=== PATIENT | male | born 1960 | race Caucasian/White ===

== ENCOUNTER 2024-05-08 13:38 | Inpatient (IN) | payer BC, SELFPAY ==
[2024-05-07 15:46] VITALS: BP 117/72
--- NOTE | 2024-05-07 15:55 | ED.GENMED ---
History of Present Illness
General
Chief Complaint: Dizziness
Time Seen by Provider: 05/07/24 15:55
History of Present Illness
History of Present Illness:
HPI: The patient presents with a general unwell feeling over the last several days. He reports a 'weird feeling' in his head, dizziness, and symptoms worsened while in his truck today driving around without air conditioning. He was assisted by
staff here from his truck into the waiting room. He did not pass out. He does not have chest pain. He has had poor p.o. intake today.
EXAM:
GENERAL: The patient appears generally weak and debilitated
HEENT: Somewhat dry oral mucosa
CARDIOVASCULAR: No murmurs, tachycardic heart rate, regular rhythm, No chest wall tenderness
PULMONARY: No respiratory distress, breath sounds are clear and equal
ABDOMEN: Soft with no peritoneal signs, no tenderness
NEUROLOGIC: Good strength all extremities, no coordination deficits, normal finger-nose testing
PSYCHIATRIC: Appropriate mental status, normal insight and judgement
EXTREMITIES: Nontender, no edema, moves all extremities equally
SKIN: Some erythematous macules noted to the face
TIME OF INITIAL ENCOUNTER: 4 PM
NUMBER AND COMPLEXITY OF PROBLEMS ADDRESSED AT THE ENCOUNTER
� Chronic conditions affecting care: Denies any significant past medical history
� Acute Exacerbation and/or Progression of Chronic Illness: This is an acute problem
� Differential Diagnosis includes: Dehydration, heat exhaustion, heat stroke, RASHID, drug/alcohol use
AMOUNT AND/OR COMPLEXITY OF DATA TO BE REVIEWED AND ANALYZED
� I performed an independent evaluation of and my interpretation is:
EKG: Sinus 116, nonspecific ST abnormality
CT: CAT scan shows no acute abnormality
X-rays: Chest x-ray unremarkable
Laboratory Studies: White count 6.7, hemoglobin 12.7, sodium potassium normal, bicarb slightly low at 20, total bili at 1.7, AST 131, CK minimally elevated to 22, ABG pH 7.49, pCO2 24, pO2 133�this was obtained on room air
Other:
� Review of other/old records: No old records available for review in [facility]
� Clinical information was obtained by an independent historian:
� Prescriptions/Medications Considered but not given:
� Further testing considered but not performed:
RISK OF COMPLICATIONS AND/OR MORBIDITY OR MORTALITY OF PATIENT MANAGEMENT
� Social determinants of health affecting care: Lives at home with air-conditioning, car does not have air conditioning
� Discussion with other providers: Hospitalist, Dr. Zee, at 7:21 PM for admission.
� Escalation of care including admission/observation vs risk of discharge considered: The patient was given IV fluid. CT imaging of the head obtained because he has been having ongoing head discomfort along with worsening
dizziness and not improving over the last several days. On reassessment at 4:30 PM, the patient has a room air sat as low as 79% with excellent waveform. ABG was obtained which was unremarkable. This did start to come up with neck extension and
having him take deep breaths. He was placed on supplemental nasal cannula oxygen as well. Will add chest x-ray. Alcohol level elevated 197 and this could be a contributing factor to his symptoms. The patient remains to be tachycardic and he
tells me he has not been drinking. I suspect a component of alcohol withdrawal as well as he does have a CIWA score of 14. Patient appears somewhat pathic on reexamination at 7:10 PM and does not recall how he got here and does not give a
consistent history
Phy Exam
Physical Exam
Physical Exam:
See HPI
Course
Orders/Labs/Results
Orders:
Orders
05/07/24 15:49
Electrocardiogram (*1) Urgent
Reason for Study: Vertigo / Dizzy
EKG- Treatment ONCE
05/07/24 15:56
0.9% Sodium Chloride 1000 ml [Nss] 1,000 ml IV BOLUS
05/07/24 16:02
CT Head W/o Iv Contrast Urgent
Comment:
Reason For Exam: ZHONG dizzy near syncope; worsening
05/07/24 16:05
Alcohol Urgent
Complete Blood Count/With Diff Urgent
Comprehensive Metabolic Panel Urgent
NT-proBNP Urgent
Comment: BNP ADDED ON BY FLOOR 4:40PM 05-07-24
Total CK [Creatine Phosphokinase] Urgent
05/07/24 16:37
Add On- LAB Routine
Tests Added?: bnp
05/07/24 16:38
CR Chest Portable - 1 View Urgent
Comment:
Reason For Exam: hypoxia
Reason Study Needs to be Portable: Patient Unstable
05/07/24 16:39
Add On- LAB Urgent
Tests Added?: alcohol
05/07/24 17:22
ABG [Arterial Blood Gas] Urgent
%Oxygen/Room Air: 2lpm
05/07/24 18:21
Drug Screen, Urine [Urine Drug Abuse Screen] Urgent
Date Specimen was Collected: 05/07/24
Time Specimen was Collected: 16:34
Abnormal Lab Results
05/07/24 05/07/24
16:05 17:22
RBC 3.78 L 10^6/uL
(4.70-6.10)
Hgb 12.7 L g/dL
(13.0-18.0)
Hct 34.8 L %
(39.0-52.0)
MCH 33.6 H pg
(27.0-31.0)
MPV 10.5 H fL
(7.4-10.4)
Basophils % 2.2 H %
(0-2)
pH 7.49 H
(7.35-7.45)
pCO2 24 L mmHg
(35-48)
pO2 133 H mmHg
(83-108)
HCO3 18.3 L mmol/L
(21-28)
Carbon Dioxide 20 L mmol/L
(22-30)
Total Bilirubin 1.7 H mg/dl
(0.2-1.3)
AST 131 H U/L
(17-59)
Alkaline Phosphatase 137 H U/L
(38-126)
Creatine Kinase 222 H U/L
(55-170)
Total Protein 8.7 H g/dl
(6.3-8.2)
05/07/24 16:05
05/07/24 16:05
Vital Signs
Initial and Last Documented VS:
Initial Vital Signs
Temp Pulse Resp BP Pulse Ox
97.8 F 119 20 117/72 98
05/07/24 15:46 05/07/24 15:46 05/07/24 15:46 05/07/24 15:46 05/07/24 15:46
Last Documented Vital Signs
Temp Pulse Resp BP Pulse Ox
97.8 F 87 17 142/98 98
05/07/24 15:46 05/07/24 18:30 05/07/24 18:15 05/07/24 17:00 05/07/24 18:30
*Critical Care Note
Total Time (30-74mins, 75-104mins- exclusive of procedures): Not Applicable
ED Attending Note
-
Portions of this chart may have been created with voice recognition software.� Occasional wrong word or��sound alike� substitutions may have occurred due to the inherent limitations of voice recognition software.
Discharge Plan
Departure
Patient Disposition: Admit
Date of Disposition: 05/07/24
Time of Disposition: 19:21
Presentation/result/management discussed w/ accepting MD/DO: Hospitalist
Discharge Problem:
Alcohol withdrawal
Referrals:
Kishore Gusman DO [Family Provider] -
Interventions
Interventions:
ED- Neurological Assessment Last Done: 05/07/24 16:07
ED- Cardiac Assessment Last Done: 05/07/24 17:21
ED Swallowing Screen Last Done: 05/07/24 17:21
Discharge Date and Time
Print Language: BAHAMIAN
[2024-05-07 15:57] VITALS: BP 126/82
[2024-05-07 16:07] VITALS: BMI 25.3
[2024-05-07] MEDS: NSS 1000 IV ×2 (16:07→22:13)
[2024-05-07 16:27] LABS: Glucose - Point of Care 96 mg/dl (70-99)
[2024-05-07 16:30] LABS: % Basophils 2.2 % (0-2); % Eosinophils 0.7 % (0-6); % Immature Granulocytes 0.1 % (0-0.5); % Monocytes 5.4 % (1.7-9.3); % Neutrophils 60.6 % (42.2-75.2); Absolute Basophils 0.2 10^3/uL (0-0.2); Absolute Eosinophils 0.1 10^3/uL (0-0.7); Absolute Lymphocytes 2.1 10^3/uL (1.2-3.4); Absolute Monocytes 0.4 10^3/uL (0.1-0.6); Absolute Neutrophils 4.1 10^3/uL (1.4-6.5); Hematocrit 34.8 % (39.0-52.0); Hemoglobin 12.7 g/dL (13.0-18.0); Mean Corp Hgb Conc. 36.5 g/dL (33.0-37.0); Mean Corpuscular Hgb 33.6 pg (27.0-31.0); Mean Corpuscular Volume 92.1 fL (80.0-94.0); Nucleated Red Blood Cells % 0 % (-); Red Blood Cell Count 3.78 10^6/uL (4.70-6.10); Red Cell Dist. Width 13.9 % (11.5-14.5); White Blood Cell Count 6.7 10^3/uL (4.8-10.8)
[2024-05-07 16:34] LABS: ALT (SGPT) 34 U/L (0-50); AST (SGOT) 131 U/L (17-59); Albumin 4.6 g/dl (3.5-5.0); Alkaline Phosphatase 137 U/L (38-126); Blood Urea Nitrogen 10 mg/dl (9-20); Calcium 9.2 mg/dl (8.4-10.2); Carbon Dioxide 20 mmol/L (22-30); Chloride 102 mmol/L (98-107); Creatine Phosphokinase 222 U/L (55-170); Estimated Creatinine Clearance 92 ml/min; Glucose 91 mg/dl (70-99); Potassium 3.7 mmol/L (3.5-5.1); Sodium 140 mmol/L (135-145); Total Bilirubin 1.7 mg/dl (0.2-1.3); Total Protein 8.7 g/dl (6.3-8.2); eGFR > 60.00
[2024-05-07 16:41] LABS: Mean Platelet Volume 10.5 fL (7.4-10.4); Platelet Count 130 10^3/uL (130-400)
[2024-05-07 17:00] VITALS: BP 142/98
[2024-05-07 17:06] LABS: Alcohol 197 mg/dl
[2024-05-07 17:18] LABS: NT-proBNP 34.6 pg/ml
[2024-05-07 17:36] LABS: B.E. -3.3 mmol/L; HCO3 18.3 mmol/L (21-28); O2 Saturation % 96.9 % (94-98); PCO2 24 mmHg (35-48); PO2 133 mmHg (83-108); pH 7.49 (7.35-7.45)
[2024-05-07 18:51] LABS: Amphetamines Negative (Negative); Barbiturates Negative (Negative); Benzodiazepines Negative (Negative); Buprenorphine Negative (Negative); Cocaine Negative (Negative); Marijuana Negative (Negative); Methadone Negative (Negative); Methamphetamines Negative (Negative); Opiates Negative (Negative); Phencyclidine Negative (Negative); Tricyclic Antidepressants Negative (Negative)
[2024-05-07] MEDS: NSS 500 IV (19:36)
--- NOTE | 2024-05-07 19:40 | HPS.HSE ---
Family Physician
-
Family Physician: Kishore Gusman
Chief Complaint
-
weakness
History of Present Illness
63-year-old mal no past medical history presenting with feeling generally unwell over the past several days. He complains of severe weakness, dizziness, feeling like he is going to pass out, headache, blurry vision, chest pressure, shortness of
breath and nausea and decreased p.o. intake, abdominal pain over the past day. He was driving around his truck today without air conditioning. He denies diarrhea. He denies fevers or chills
He drinks half a bottle of whiskey per day which he last ran yesterday. He denies smoking or any other drugs.
Medical History
Past Medical History
Past Medical History: Reports None
Past Surgical History: Reports Other (Appendectomy, craniotomy when he was a child)
Social History
Tobacco: Non-smoker
Alcohol: Daily
Drug: None
Family History
Family History: Not pertinent
Allergies / Home Medications
Allergies reflects when Allergies were last updated in [employer].
Home Medications with original date entered in [employer]
Allergy/Medication List:
Allergies
Allergy/AdvReac Type Severity Reaction Status Date / Time
No Known Allergies Allergy Verified 05/07/24 15:49
Home Medications
No Meds [No Current Medications] 05/07/24
Review of Systems
-
History Source: Patient
A 12 point ROS was completed and negative except as noted: Yes
Constitutional: Reports See HPI
EENT: Reports No Symptoms
Respiratory: Reports See HPI
Cardiac: Reports See HPI
Abdomen/GI: Reports See HPI
: Reports No Symptoms
Musculoskeletal: Reports No Symptoms
Skin: Reports No Symptoms
Neurological: Reports No Symptoms
Endocrine: Reports No Symptoms
Hematologic/Lymphatic: Reports No Symptoms
Psych: Reports No Symptoms
Physical Exam
Vital Signs
Vital Signs
Temp Pulse Resp BP Pulse Ox
97.8 F 87 17 142/98 98
05/07/24 15:46 05/07/24 18:30 05/07/24 18:15 05/07/24 17:00 05/07/24 18:30
Physical Exam
General: Well Developed, Well Nourished and No Apparent Distress
HEENT: NormoCephalic, Moist mucous membranes and Atraumatic
Respiratory: Clear
Cardiac: S1/S2 and Regular Rhythm; No Murmur or Rub
GI: Soft, Non Tender, Non Distended and Normal Bowel Sounds; No Organomegaly
Rectal: Deferred by Provider
Musculoskeletal: No Clubbing, No Cyanosis and No Edema
Skin: No Rash
Neuro: Nonfocal/grossly intact
Laboratory Results
-
05/07/24 16:05
05/07/24 16:05
Laboratory Results
pH 7.49 (7.35-7.45) H 05/07/24 17:22
pCO2 24 mmHg (35-48) L 05/07/24 17:22
pO2 133 mmHg (83-108) H 05/07/24 17:22
HCO3 18.3 mmol/L (21-28) L 05/07/24 17:22
Total Bilirubin 1.7 mg/dl (0.2-1.3) H 05/07/24 16:05
AST 131 U/L (17-59) H 05/07/24 16:05
ALT 34 U/L (0-50) 05/07/24 16:05
Alkaline Phosphatase 137 U/L (38-126) H 05/07/24 16:05
Data Reviewed
-
Lab Data: Labs Reviewed by me
Old Records: Reviewed
Impression/Plan
-
IMPRESSION:
PLAN:
# Likely alcohol intoxication/withdrawal
# Daily alcohol use
-Alcohol level 197
-UDS negative
-ABG showing uncompensated respiratory alkalosis
-Chest x-ray unremarkable
-CT head negative
-IV fluids
-Thiamine and folate
-Alcohol withdrawal protocol
-Protonix for potential gastritis
-Zofran
# Chest pressure
-EKG shows sinus tachycardia
-Check troponin
# Mild transaminitis likely secondary to alcohol
-Continue to monitor
Full code
DVT prophylaxis�heparin
Regular diet
[2024-05-07 19:48] VITALS: BP 131/66
[2024-05-07] MEDS: PROTONIX IV 40 MG IV (19:54)
[2024-05-07 20:00] VITALS: BP 138/77
[2024-05-07 20:22] LABS: Magnesium 1.3 mg/dl (1.6-2.3)
[2024-05-07 20:24] LABS: Troponin I < 0.012 ng/ml
--- NOTE | 2024-05-07 21:00 | PTCARENOTE ---
Pt transferred from ED. Pt slid over into bed. Pt AAOX2, forgetful, nausea, anxious. Pt reports Roberto protocol initiated.
[2024-05-07 21:30] VITALS: BMI 24.9
[2024-05-07 21:37] VITALS: BP 134/81
--- NOTE | 2024-05-07 22:00 | PTCARENOTE ---
Pt transferred from ED. Pt rolled over into bed with assistance. Pt AAOX2, able to make needs known, VSS. Pt reports he drinks frequently, MSAS protocol initiated. Pt forgetful, anxious, nauseous, and experiencing tremors. Pt oriented to room, bed
alarm applied, call parks within reach. Will continue with current plan.
[2024-05-07] MEDS: ATIVAN 1 MG PO (22:10)
[2024-05-07] MEDS: THIAMINE INJECTION 200 MG IV (22:11)
[2024-05-07] MEDS: HEPARIN 5000 UNITS SC (22:11)
[2024-05-07] MEDS: ZOFRAN 4 MG IV (22:24)
[2024-05-08] VITALS (8 sets, daily range): BP systolic 105–156; BP diastolic 68–96; PULSE 83–88; O2SAT 96–98; BMI 25.0
--- NOTE | 2024-05-08 03:19 | DOWNTIME ---
There was a [employer] Client Duty Officer Downtime on 05/08/2024 from 0100 to 05/08/2024 at 0255. Downtime documentation of patient's care, including medication administrations, has been reconciled in the electronic record per guidelines. Refer to the
patient's paper chart under the miscellaneous tab to see printed paper medication records and downtime forms.
[2024-05-08] MEDS: ZOFRAN 4 MG IV ×2 (05:02→11:28)
[2024-05-08] MEDS: NSS 1000 IV ×2 (06:12→20:06)
[2024-05-08 07:53] LABS: ALT (SGPT) 35 U/L (0-50); AST (SGOT) 121 U/L (17-59); Albumin 4.3 g/dl (3.5-5.0); Alkaline Phosphatase 128 U/L (38-126); Blood Urea Nitrogen 9 mg/dl (9-20); Calcium 8.4 mg/dl (8.4-10.2); Carbon Dioxide 24 mmol/L (22-30); Chloride 98 mmol/L (98-107); Estimated Creatinine Clearance 119 ml/min; Glucose 81 mg/dl (70-99); Potassium 4.1 mmol/L (3.5-5.1); Sodium 135 mmol/L (135-145); Total Bilirubin 2.4 mg/dl (0.2-1.3); Total Protein 8.3 g/dl (6.3-8.2); eGFR > 60.00
[2024-05-08 08:38] LABS: Hematocrit 35.3 % (39.0-52.0); Hemoglobin 12.3 g/dL (13.0-18.0); Mean Corp Hgb Conc. 34.8 g/dL (33.0-37.0); Mean Corpuscular Hgb 32.3 pg (27.0-31.0); Mean Corpuscular Volume 92.7 fL (80.0-94.0); Red Blood Cell Count 3.81 10^6/uL (4.70-6.10); Red Cell Dist. Width 13.9 % (11.5-14.5); White Blood Cell Count 6.1 10^3/uL (4.8-10.8)
[2024-05-08 08:56] LABS: Magnesium 1.2 mg/dl (1.6-2.3); Phosphorus 2.6 mg/dl (2.5-4.5)
[2024-05-08] MEDS: HEPARIN 5000 UNITS SC ×2 (09:02→19:55)
[2024-05-08] MEDS: FOLVITE 1 MG PO (09:02)
[2024-05-08] MEDS: MAGNESIUM OXIDE 500 MG PO (09:02)
[2024-05-08] MEDS: THIAMINE INJECTION 200 MG IV ×2 (09:03→20:02)
--- NOTE | 2024-05-08 09:48 | W.PN.HOSP.TC ---
Today's Communication/Plan
-
see outlined plan
Assessment / Plan
Assessment / Plan
Assessment:
Acute ETOH intoxication with now clinical evidence of Withdrawal
- start phenobarbital protocol
- continue MSAS protocol with folate, MV, thiamine
Chronic alcoholism
- reports 1/2 bottle every other day
- encourage cessation
- BCARES consultation
- monitor nutrition; nutrition consult
Hypomagnesemia
- replete via IV
Chest pain
Epigastric pain
- likely related to ETOH intake, gastritis/esophagitis
- check 1 additional trop; monitor tele
- IV PPI
- clears; continue IVF
- anti-emetics
Subjective dyspnea
- wean O2, CXR clear
- IS
DVT ppx: SC heparin
Code: Full
Anticipated Discharge: 24 - 48 hours
Subjective/Interval History
-
Date of Service: May 08, 2024
reports epigastric discomfort, mild chest discomfort
no SOB or fever/chills
no other complaints
admits to drinking at least 1/2 bottle every other day and reports prior hx of withdrawal
Objective Data
-
Labs:
Laboratory Results
05/08/24
07:10
WBC 6.1
Hgb 12.3 L
Hct 35.3 L
Plt Count Pending
Sodium 135
Potassium 4.1
Chloride 98
Carbon Dioxide 24
BUN 9
Creatinine 0.7
Glucose 81
Calcium 8.4
Total Bilirubin 2.4 H
AST 121 H
ALT 35
Alkaline Phosphatase 128 H
Vital Signs:
Vital Signs
Temp Pulse Resp BP Pulse Ox
97.7 F 107 24 137/93 99
05/08/24 07:15 05/08/24 07:15 05/08/24 07:15 05/08/24 07:15 05/08/24 07:15
I&O
05/07/24 05/08/24 05/09/24
06:59 06:59 06:59
Intake Total 1280 / 1280
Output Total 900 / 900
Balance 380 / 380
Physical Exam
-
General: Appears in Distress and Conversant
HEENT: Normocephalic and Atraumatic
Respiratory: Clear to Auscultation; Negative Wheezes or Rales
Cardiac: Regular Rhythm and S1/S2
GI: Normal Bowel Sounds and Tender (epigastric)
Genito-urinary: No Costovertebral Tender
Musculoskeletal: No Edema
Neuro: AO x 3 and Tremors
Psych: Calm
Data Reviewed
-
Total Time Spent with Patient (in minutes): 46
Labs: Labs Reviewed by me
[2024-05-08 10:57] LABS: % Basophils 1.3 % (0-2); % Eosinophils 1.6 % (0-6); % Immature Granulocytes 0.3 % (0-0.5); % Lymphocytes 26.1 % (20.5-51.1); % Monocytes 5.9 % (1.7-9.3); % Neutrophils 64.8 % (42.2-75.2); Absolute Basophils 0.1 10^3/uL (0-0.2); Absolute Eosinophils 0.1 10^3/uL (0-0.7); Absolute Lymphocytes 1.6 10^3/uL (1.2-3.4); Absolute Monocytes 0.4 10^3/uL (0.1-0.6); Mean Platelet Volume 10.8 fL (7.4-10.4); Nucleated Red Blood Cells % 0 % (-); Platelet Count 79 10^3/uL (130-400)
[2024-05-08 11:05] LABS: Troponin I < 0.012 ng/ml
[2024-05-08] MEDS: PHENOBARBITAL 97.5 MG IV ×3 (11:26→22:22)
[2024-05-08] MEDS: PROTONIX IV 40 MG IV (11:29)
[2024-05-08] MEDS: NSS (PRESERVATIVE FREE) 10 ML IV (11:30)
[2024-05-08] MEDS: MAGNESIUM SULFATE 100 IV (11:31)
--- NOTE | 2024-05-08 12:18 | CM ---
Addendum entered by Melinda Valdez 05/08/24 12:48:
Salvador from [facility] seen patient today.
Resources given for outpatient. Patient agreeable to virtual.
Original Note:
Initial assessment by dependency case manager.
Observation form signed/dated & placed in chart.
Dx: Alcohol intoxication/withdrawal
Patient lives in a 2nd floor apartment with his dog and has approximately 10 steps to apartment. Does have air conditioning.
PLOF: Independent and drives - No DME
Salvador from [facility] to see the patient regarding resources.
No needs identified at this time.
PCP: Dr. Kishore Gusman
Pharmacy: [facility]
PLAN: Discharge to home. No needs at this time.
--- NOTE | 2024-05-08 12:45 | PTCARENOTE ---
Assumed care of pt from previous nurse. MSAS is 4, pt provided zofran for nausea. Pt is on tele running nsr. Pt call parks is within reach, pt rings yu. will cont to monitor.
[2024-05-08] MEDS: ATIVAN 1 MG PO (17:41)
[2024-05-09 03:27] VITALS: BP 113/68
[2024-05-09] MEDS: NSS 1000 IV (05:32)
[2024-05-09 06:00] VITALS: BMI 24.9
[2024-05-09 07:15] VITALS: BP 134/85
[2024-05-09] MEDS: NSS (PRESERVATIVE FREE) 10 ML IV (07:32)
[2024-05-09] MEDS: PROTONIX IV 40 MG IV (07:33)
[2024-05-09] MEDS: PHENOBARBITAL 97.5 MG IV ×3 (07:33→21:29)
[2024-05-09] MEDS: HEPARIN 5000 UNITS SC (07:34)
[2024-05-09] MEDS: THIAMINE INJECTION 200 MG IV ×2 (07:34→19:54)
[2024-05-09] MEDS: FOLVITE 1 MG PO (07:34)
[2024-05-09 08:53] LABS: Hematocrit 32.1 % (39.0-52.0); Hemoglobin 11.6 g/dL (13.0-18.0); Mean Corp Hgb Conc. 36.1 g/dL (33.0-37.0); Mean Corpuscular Hgb 33.3 pg (27.0-31.0); Mean Corpuscular Volume 92.2 fL (80.0-94.0); Mean Platelet Volume 10.8 fL (7.4-10.4); Platelet Count 62 10^3/uL (130-400); Red Blood Cell Count 3.48 10^6/uL (4.70-6.10); Red Cell Dist. Width 13.8 % (11.5-14.5); White Blood Cell Count 4.8 10^3/uL (4.8-10.8)
[2024-05-09 09:11] LABS: ALT (SGPT) 30 U/L (0-50); AST (SGOT) 96 U/L (17-59); Albumin 3.8 g/dl (3.5-5.0); Alkaline Phosphatase 122 U/L (38-126); Blood Urea Nitrogen 10 mg/dl (9-20); Calcium 8.5 mg/dl (8.4-10.2); Carbon Dioxide 27 mmol/L (22-30); Chloride 98 mmol/L (98-107); Estimated Creatinine Clearance 119 ml/min; Glucose 108 mg/dl (70-99); Magnesium 1.8 mg/dl (1.6-2.3); Phosphorus 1.9 mg/dl (2.5-4.5); Potassium 3.4 mmol/L (3.5-5.1); Sodium 135 mmol/L (135-145); Total Bilirubin 2.1 mg/dl (0.2-1.3); Total Protein 7.7 g/dl (6.3-8.2); eGFR > 60.00
--- NOTE | 2024-05-09 10:18 | W.PN.HOSP.TC ---
Today's Communication/Plan
-
continue ETOH w/d protocol
replete K and Phos
repeat AM labs
reg diet
Assessment / Plan
Assessment / Plan
Assessment:
Acute ETOH intoxication with now clinical evidence of Withdrawal
- continue phenobarbital protocol
- continue MSAS protocol with folate, MV, thiamine
Chronic alcoholism
- reports 1/2 bottle every other day
- encourage cessation
- BCARES consultation
- monitor nutrition; nutrition consult
Hypomagnesemia
- replete via IV
Hypokalemia
- replete orally
Hypophosphatemia
- replete orally
Chest pain
Epigastric pain
- likely related to ETOH intake, gastritis/esophagitis
- 2 negative trops
- continue IV PPI
- regular diet, cap IVF
- anti-emetics
Subjective dyspnea
- wean O2, CXR clear
- IS
Thrombocytopenia in setting of acute alcohol use
- monitor
DVT ppx: SCDs (stop Heparin with thrombocytopenia)
Code: Full
Anticipated Discharge: > 48 hours
Subjective/Interval History
-
Date of Service: May 09, 2024
withdrawal improving
no new complaints
Objective Data
-
Labs:
Laboratory Results
05/09/24
08:14
WBC 4.8
Hgb 11.6 L
Hct 32.1 L
Plt Count 62 L D
Sodium 135
Potassium 3.4 L
Chloride 98
Carbon Dioxide 27
BUN 10
Creatinine 0.7
Glucose 108 H
Calcium 8.5
Total Bilirubin 2.1 H
AST 96 H
ALT 30
Alkaline Phosphatase 122
Vital Signs:
Vital Signs
Temp Pulse Resp BP Pulse Ox
97.6 F 100 18 134/85 98
05/09/24 07:15 05/09/24 07:15 05/09/24 07:15 05/09/24 07:15 05/09/24 07:15
I&O
05/08/24 05/09/24 05/10/24
06:59 06:59 06:59
Intake Total 1280 / 1280 2640 / 2640
Output Total 900 / 900 3050 / 3050
Balance 380 / 380 -410 / -410
Physical Exam
-
General: No Apparent Distress
HEENT: Normocephalic and Atraumatic
Respiratory: Negative Wheezes
Cardiac: Regular Rhythm
GI: Soft
Genito-urinary: No Costovertebral Tender
Neuro: AO x 3
Psych: Calm
Data Reviewed
-
Total Time Spent with Patient (in minutes): 44
Labs: Labs Reviewed by me
[2024-05-09] MEDS: KCL 40 MEQ PO (10:56)
[2024-05-09 11:22] VITALS: BP 99/59
--- NOTE | 2024-05-09 12:47 | CM ---
Patient in bed resting comfortably.
States met with Salvador from [facility] yesterday and will see again.
Plan: Patient to discharge home when stable. No needs anticipated at this time.
[2024-05-09] MEDS: NEUTRA-PHOS POWDER PACKET 250 MG PO ×2 (14:15→17:04)
[2024-05-09 15:02] VITALS: BP 115/76
[2024-05-09 19:25] VITALS: BP 118/74
[2024-05-09 23:10] VITALS: BP 124/71
[2024-05-10] VITALS (7 sets, daily range): BP systolic 95–155; BP diastolic 60–96; PULSE 104–119; BMI 24.9
[2024-05-10] MEDS: LUMINAL 64.8 MG PO ×3 (08:30→21:00)
[2024-05-10] MEDS: FOLVITE 1 MG PO (08:31)
[2024-05-10] MEDS: THIAMINE INJECTION 200 MG IV (09:07)
[2024-05-10] MEDS: NSS (PRESERVATIVE FREE) 10 ML IV (09:08)
[2024-05-10] MEDS: PROTONIX IV 40 MG IV (09:08)
[2024-05-10 09:15] LABS: Hematocrit 34.3 % (39.0-52.0); Hemoglobin 12.1 g/dL (13.0-18.0); Mean Corp Hgb Conc. 35.3 g/dL (33.0-37.0); Mean Corpuscular Hgb 33.4 pg (27.0-31.0); Mean Corpuscular Volume 94.8 fL (80.0-94.0); Mean Platelet Volume 11.5 fL (7.4-10.4); Platelet Count 61 10^3/uL (130-400); Red Blood Cell Count 3.62 10^6/uL (4.70-6.10); White Blood Cell Count 5.8 10^3/uL (4.8-10.8)
[2024-05-10 09:45] LABS: ALT (SGPT) 33 U/L (0-50); AST (SGOT) 105 U/L (17-59); Albumin 3.9 g/dl (3.5-5.0); Alkaline Phosphatase 146 U/L (38-126); Blood Urea Nitrogen 11 mg/dl (9-20); Carbon Dioxide 29 mmol/L (22-30); Chloride 101 mmol/L (98-107); Estimated Creatinine Clearance 104 ml/min; Glucose 98 mg/dl (70-99); Magnesium 1.6 mg/dl (1.6-2.3); Potassium 3.9 mmol/L (3.5-5.1); Sodium 136 mmol/L (135-145); Total Bilirubin 1.6 mg/dl (0.2-1.3); Total Protein 7.7 g/dl (6.3-8.2); eGFR > 60.00
--- NOTE | 2024-05-10 11:07 | W.PN.HOSP.TC ---
Today's Communication/Plan
-
sodium/phos
monitor platelets
continue Phenobarb protocol
Assessment / Plan
Assessment / Plan
Assessment:
Acute ETOH intoxication with now clinical evidence of Withdrawal
- continue phenobarbital protocol
- continue MSAS protocol with folate, MV, thiamine
Chronic alcoholism
- reports 1/2 bottle every other day
- encourage cessation
- BCARES consultation
- monitor nutrition; nutrition consult
Hypomagnesemia
- levels stable after repletion
Hypokalemia
- replete orally prn
Hypophosphatemia
- replete orally with Na/Phos packets
Chest pain
Epigastric pain
- likely related to ETOH intake, gastritis/esophagitis
- 2 negative trops
- continue PPI
- regular diet
- anti-emetics
Subjective dyspnea
- wean O2, CXR clear
- IS
Thrombocytopenia in setting of acute alcohol use
- monitor
DVT ppx: SCDs (stop Heparin with thrombocytopenia)
Code: Full
Anticipated Discharge: Within 24 hours
Subjective/Interval History
-
Date of Service: May 10, 2024
feels better no complaints
Objective Data
-
Labs:
Laboratory Results
05/10/24
07:35
WBC 5.8
Hgb 12.1 L
Hct 34.3 L
Plt Count 61 L
Sodium 136
Potassium 3.9
Chloride 101
Carbon Dioxide 29
BUN 11
Creatinine 0.8
Glucose 98
Calcium 9.0
Total Bilirubin 1.6 H
AST 105 H
ALT 33
Alkaline Phosphatase 146 H
Vital Signs:
Vital Signs
Temp Pulse Resp BP Pulse Ox
98.5 F 101 19 121/65 100
05/10/24 11:00 05/10/24 11:00 05/10/24 11:00 05/10/24 11:00 05/10/24 11:00
I&O
05/09/24 05/10/24 05/11/24
06:59 06:59 06:59
Intake Total 2640 / 2640 1779
Output Total 3050 / 3050
Balance -410 / -410 1779
Physical Exam
-
General: No Apparent Distress
HEENT: Normocephalic and Atraumatic
Respiratory: Negative Wheezes
Cardiac: Regular Rhythm and S1/S2
GI: Soft and Nontender
Genito-urinary: No Costovertebral Tender
Musculoskeletal: No Edema
Neuro: AO x 3
Psych: Calm
Data Reviewed
-
Total Time Spent with Patient (in minutes): 42
Labs: Labs Reviewed by me
--- NOTE | 2024-05-10 11:59 | CM ---
Patient seen bedside.
PT recommending home with HC,
Referral to [facility] and accepted.
Per PT notes may need an ambulation device, will see if he needs any with next session.
(may need script for RW)
IMM completed.
Plan: home with [facility]N
[facility]
Fax# [phone]
[2024-05-10] MEDS: NEUTRA-PHOS POWDER PACKET 250 MG PO ×3 (13:18→21:00)
[2024-05-10] MEDS: VITAMIN B1 100 MG PO (20:48)
[2024-05-11 03:00] VITALS: BP 117/67
[2024-05-11 08:00] VITALS: BP 151/86
[2024-05-11] MEDS: LUMINAL 64.8 MG PO (08:17)
[2024-05-11] MEDS: NEUTRA-PHOS POWDER PACKET 250 MG PO (08:17)
[2024-05-11] MEDS: VITAMIN B1 100 MG PO (08:18)
[2024-05-11] MEDS: PROTONIX 40 MG PO (08:18)
[2024-05-11] MEDS: FOLVITE 1 MG PO (08:18)
--- NOTE | 2024-05-11 08:59 | W.PN.HOSP.TC ---
Today's Communication/Plan
-
dc to home today
Assessment / Plan
Assessment / Plan
Assessment:
Acute ETOH intoxication with now clinical evidence of Withdrawal
- completed majority of phenobarbital protocol with improvement; will stop it now
- continue MSAS protocol with folate, MV, thiamine, mag oxide
Chronic alcoholism
- reports 1/2 bottle every other day
- encourage cessation
- BCARES consultation
- monitor nutrition; nutrition consult
Hypomagnesemia
- dc on mag oxide daily
Hypokalemia
- replete orally prn
Hypophosphatemia
- adequate replaced with Na/Phos packets
Chest pain
Epigastric pain
- likely related to ETOH intake, gastritis/esophagitis
- 2 negative trops
- continue PPI
- regular diet
- anti-emetics
Subjective dyspnea
- wean O2, CXR clear
- IS
Thrombocytopenia in setting of acute alcohol use
- improving, no active bleeding
DVT ppx: SCDs
Code: Full
More than 30 minutes spent in discharge including
Final examination of the patient
Summarizing hospital stay
Instructions for continuing care to all relevant caregivers
Preparation of discharge records, prescriptions, and referral forms
Total time spent (in minutes):41
Anticipated Discharge: Today
Subjective/Interval History
-
Date of Service: May 11, 2024
no new complaints
Objective Data
-
Labs:
Laboratory Results
05/11/24
07:49
WBC Pending
Hgb Pending
Hct Pending
Plt Count Pending
Sodium Pending
Potassium Pending
Chloride Pending
Carbon Dioxide Pending
BUN Pending
Creatinine Pending
Glucose Pending
Calcium Pending
Total Bilirubin Pending
AST Pending
ALT Pending
Alkaline Phosphatase Pending
Vital Signs:
Vital Signs
Temp Pulse Resp BP Pulse Ox
97.6 F 68 20 151/86 94
05/11/24 08:00 05/11/24 08:00 05/11/24 08:00 05/11/24 08:00 05/11/24 08:00
I&O
05/10/24 05/11/24 05/12/24
06:59 06:59 06:59
Intake Total 1780 / 1780 600 / 600
Balance 1780 / 1780 600 / 600
Physical Exam
-
General: No Apparent Distress
HEENT: Normocephalic and Atraumatic
Respiratory: Negative Wheezes
Cardiac: Regular Rhythm and S1/S2
GI: Soft
Genito-urinary: No Costovertebral Tender
Musculoskeletal: No Edema
Neuro: AO x 3
Hematologic / Lymphatic: No Lymphadenopathy
Psych: Calm
Data Reviewed
-
Total Time Spent with Patient (in minutes): 41
Labs: Labs Reviewed by me
[2024-05-11 09:27] LABS: Hematocrit 33.5 % (39.0-52.0); Mean Corp Hgb Conc. 35.8 g/dL (33.0-37.0); Mean Corpuscular Hgb 33.3 pg (27.0-31.0); Mean Corpuscular Volume 93.1 fL (80.0-94.0); Mean Platelet Volume 12.5 fL (7.4-10.4); Platelet Count 74 10^3/uL (130-400); Red Cell Dist. Width 14.5 % (11.5-14.5); White Blood Cell Count 7.7 10^3/uL (4.8-10.8)
[2024-05-11 09:54] LABS: ALT (SGPT) 36 U/L (0-50); AST (SGOT) 100 U/L (17-59); Alkaline Phosphatase 144 U/L (38-126); Blood Urea Nitrogen 14 mg/dl (9-20); Calcium 9.5 mg/dl (8.4-10.2); Carbon Dioxide 26 mmol/L (22-30); Chloride 100 mmol/L (98-107); Estimated Creatinine Clearance 104 ml/min; Glucose 88 mg/dl (70-99); Magnesium 1.5 mg/dl (1.6-2.3); Phosphorus 3.6 mg/dl (2.5-4.5); Potassium 4.1 mmol/L (3.5-5.1); Sodium 136 mmol/L (135-145); Total Bilirubin 1.4 mg/dl (0.2-1.3); Total Protein 8.1 g/dl (6.3-8.2); eGFR > 60.00
--- NOTE | 2024-05-11 10:24 | W.DS.TRANS ---
DC Summary - Clinical Cytogeneticist Scientist
-
Discharge Instructions:
Discharge Diagnosis/Procedures ETOH intoxication with withdrawal
Diet Regular
Activity As tolerated
Bathing Restrictions None
Other Services [facility]
Instructions:
Stand-Alone Forms:
Changes to Home Medications: No
Discharge Medications:
DC Medications w/original date [facility] in [employer] [facility] [facility]
folic acid 1 mg tablet 1 mg PO DAILY #100 tabs 05/10/24
pantoprazole 40 mg tablet,delayed release 40 mg PO DAILY #30 tabs 05/10/24
thiamine HCl (vitamin B1) 100 mg tablet 100 mg PO BID #100 tabs 05/10/24
magnesium oxide 500 mg PO DAILY #30 tabs 05/11/24
Home Medication Changes
Pending Results: No
Total time spent discharging patient (in min): 41
--- NOTE | 2024-05-11 10:33 | CM ---
Chart reviewed and patient is for discharge to home today.
Plan; Home today with [facility] visiting nurses.
Esha TAYLOR
Fax# [phone]
[2024-05-11] MEDS: PREVNAR 20 0.5 ML IM (11:36)
[2024-05-11 11:39] VITALS: BP 116/72
== END 2024-05-11 14:05 | disposition home health service (06) | DRG 897 ==
LOC: 4 WEST ACU 13:38
PROVIDERS: ADMITTING PHYSICIAN Hospitalist; ATTENDING PHYSICIAN Internal Medicine; EMERGENCY PHYSICIAN Emergency Medicine; FAMILY PHYSICIAN Family Medicine
PROC: 3E0234Z Introduction of Serum, Toxoid and Vaccine into Muscle, Percutaneous Approach (ICD-10-PCS; 2024-05-11)
DX: F10.230 Alcohol dependence with withdrawal, uncomplicated (principal); E87.3 Alkalosis; Y90.6 Blood alcohol level of 120-199 mg/100 ml; R74.01 Elevation of levels of liver transaminase levels; F10.229 Alcohol dependence with intoxication, unspecified; E83.42 Hypomagnesemia; E87.6 Hypokalemia; E83.39 Other disorders of phosphorus metabolism; D69.59 Other secondary thrombocytopenia; K29.70 Gastritis, unspecified, without bleeding; K20.90 Esophagitis, unspecified without bleeding; Z23 Encounter for immunization
CPT/HCPCS: 70450; 71045; 80053; 80306; 82077; 82550; 82805; 82962; 83735; 83880; 84100; 84484; 85025; 85027; 90677; 93005; 96360; 96361; 97163; 97166; 97530; 99285; G0009